=== PATIENT | male | born 1955 | race Caucasian/White ===

== ENCOUNTER 2019-02-15 09:57 | Outpatient (CLI) | payer MEDICARE, OTHER ==
[2019-02-15 11:20] LABS: #Eosinphils 0.1 thou/uL (0.0-0.7); #Lymphocytes 1.6 thou/uL (1.20-3.40); #Monocytes 0.5 thou/uL (0.11-0.59); #Neutrophils 2.5 thou/uL (1.40-6.50); %Basophils 0.7 % (0.0-1.0); %Eosinophils 1.3 % (0.0-10.0); %Lymphocytes 34.6 % (21.0-51.0); %Monocytes 10.5 % (0.0-10.0); Hemoglobin 17.2 g/dL (14.0-18.0); Mean Corpuscular HGB CONC 33.1 g/dL (32.0-36.0); Mean Corpuscular Volume 96.7 fL (78.0-98.0); Mean Platelet Volume 9.2 fL (7.4-10.4); Platelet Count 84 thou/uL (130-400); Platelet Morphology Comment Appears Decreased; RBC Distribution Width 11.5 % (11.5-14.5); Red Blood Cell (RBC) Count 5.38 mill/uL (4.70-6.10); White Blood Cell (WBC) Count 4.7 thou/uL (4.8-10.8)
[2019-02-15 11:21] LABS: Manual Diff?? NO
[2019-02-15 11:22] LABS: MDiff Complete? YES
[2019-02-15 11:24] LABS: ALT (SGPT) 515 U/L (8-55); AST (SGOT) 402 U/L (5-34); Albumin 3.7 g/dL (3.4-4.8); Alkaline Phosphatase 115 U/L (40-110); Anion Gap 13 mmol/L (10-20); BUN (Urea Nitrogen) 23 mg/dL (8.4-25.7); Bilirubin, Total 1.7 mg/dL (0.2-1.2); Calc. Creatinine Clearance 0 mL/min (70-130); Calcium 8.9 mg/dL (7.8-10.44); Carbon Dioxide 23 mmol/L (23-31); Chloride 104 mmol/L (98-107); Estimated GFR-MDRD 74; Globulin 3.6 g/dL (2.4-3.5); Glucose 246 mg/dL (80-115); Lipase 54 U/L (8-78); Potassium 4.4 mmol/L (3.5-5.1); Protein, Total 7.3 g/dL (5.8-8.1); Sodium 136 mmol/L (136-145)
--- NOTE | 2019-02-15 12:45 | RAD ---
XR Abdomen 2 View History: Epigastric pain Comparison: None. Findings: There are no dilated air-filled loops of large or small bowel. On the upright exam no free air under the hemidiaphragms. Dorsal column stimulator leads project over the mid thoracic spine. Lung bases are clear. No abnormal calcifications projecting over the renal shadows. Relative paucity of gas in the left hemiabdomen. Impression: No evidence for bowel obstruction.
--- NOTE | 2019-02-15 13:18 | ULT ---
US Abdominal History: Right upper quadrant pain Comparison: None. Findings: Real-time grayscale and color evaluation of the abdomen was performed. Visualized portion a zehra IVC and pancreas are unremarkable. Mild diffuse increased hepatic echotexture without mass. Gallbladder is normal. No pericholecystic fluid. Common bile duct is normal measuring 3 mm. No cholelithiasis. Right kidney measures 11.2 x 5.4 x 4.8 cm and the left kidney measures 12.7 x 6.9 x 5.4 cm without mass, hydronephrosis, or abnormal calcifications. Spleen is elongated measuring 14 cm in length. Impression: 1. Mild diffuse increased hepatic echotexture suggesting steatosis. 2. Moderate splenomegaly. 3. No cholelithiasis or acute gallbladder pathology.
[2019-02-15 17:14] LABS: Hemoglobin A1c 9.2 % (4.0-6.0)
== END 2019-02-15 09:58 | disposition home or self-care (01) ==
LOC: MADLAB 09:57
PROVIDERS: ATTEND Nurse Practitioner Family
DX: R10.13 Epigastric pain (principal); R11.0 Nausea; R10.11 Right upper quadrant pain; K76.89 Other specified diseases of liver; R16.1 Splenomegaly, not elsewhere classified
CPT/HCPCS: 36415; 74019; 80053; 82150; 83036; 83690; 85025; 93975